=== PATIENT | male | born 1970 | race African-American/Black ===

== ENCOUNTER 2016-11-23 03:59 | Inpatient (IN) | payer MEDICAID, OTHER ==
[2016-11-23] VITALS: BP 108/76
[~2016-11-23] VITALS: Ht 165.1 cm; Wt 153.8 kg
[2016-11-23] MEDS: IPRATROPIUM/ALBUTEROL 0.5-3(2.5)MG/3ML NEB INH SCH ×2 (01:08→12:00)
[2016-11-23] MEDS ORDERED: ONDANSETRON HCL 4MG/2ML VIAL IV STA (04:13)
[2016-11-23] MEDS ORDERED: NITROGLYCERIN OINT 1GM/INCH UDPKT TD STA (04:13)
[2016-11-23] MEDS ORDERED: MORPHINE SULFATE 4 MG/ML CPJ (NOT FOR IM USE) IV STA (04:13)
[2016-11-23] MEDS ORDERED: ENALAPRIL 2.5MG/2ML VIAL 2ML IV STA (04:13)
[2016-11-23] MEDS ORDERED: FUROSEMIDE 40MG/4ML VIAL IV STA (04:13)
[2016-11-23 04:29] LABS: HEMATOCRIT. 39.8 % (42.0-52.0); HEMOGLOBIN. 13.1 g/dL (14.0-18.0); MEAN CORPUSCULAR HEMOGLOBIN 27.3 pg (28.0-32.0); MEAN CORPUSCULAR VOLUME 83.1 fL (80.0-94.0); MEAN PLATELET VOLUME 8.4 fl (7.4-10.4); PLATELET 202 x1000/uL (130-400); RED BLOOD CELL COUNT 4.79 mill/uL (4.7-6.1)
[2016-11-23 04:36] LABS: INR 1.2; PARTIAL THROMBOPLASTIN TIME 28.9 sec (24.0-34.0); PROTHROMBIN TIME 12.1 sec
[2016-11-23 04:44] LABS: CARBON DIOXIDE 25 mEq/L (21-32); CHLORIDE 98 mEq/L (98-107); TROPONIN I < 0.02 ng/mL (0.00-0.04)
[2016-11-23 06:57] LABS: NUCLEATED RED BLOOD CELLS 2 /100 WBC; PLATELET ESTIMATE NORMAL
[2016-11-23 08:00] VITALS: BP_SYST 104; BP_SYST 127; BP_DIAS 72; BP_DIAS 90
[2016-11-23 08:30] VITALS: BP 127/90
[2016-11-23] MEDS ORDERED: DIPHENHYDRAMINE 50MG/ML VIAL IV PRN (10:30)
[2016-11-23] MEDS ORDERED: MAGNESIUM/ALUMINUM HYDROXIDE/SIMETHICONE 30ML UDC PO PRN (10:30)
[2016-11-23] MEDS ORDERED: DOCUSATE SODIUM 100MG CAPSULE PO PRN (10:30)
[2016-11-23] MEDS ORDERED: DEXTROSE 50% WATER 50ML SYRINGE IV PRN (10:30)
[2016-11-23] MEDS ORDERED: ACETAMINOPHEN 325MG TABLET PO PRN (10:30)
[2016-11-23] MEDS ORDERED: CLONIDINE 0.1MG TABLET PO PRN (10:30)
[2016-11-23] MEDS ORDERED: HYDROCODONE/ACETAMINOPHEN 5/325MG TABLET PO PRN (10:30)
[2016-11-23] MEDS ORDERED: NA PHOS,M-B/NA PHOS,DI-BA ENEMA 118ML PR PRN (10:30)
[2016-11-23] MEDS ORDERED: IPRATROPIUM/ALBUTEROL 0.5-3(2.5)MG/3ML NEB INH PRN (10:30)
[2016-11-23] MEDS ORDERED: SERT-112 PO (10:48)
[2016-11-23] MEDS ORDERED: LURA40TA PO (10:48)
[2016-11-23] MEDS ORDERED: ALBU18HF2 IH (10:48)
[2016-11-23] MEDS ORDERED: FURO40TA5 PO (10:48)
[2016-11-23] MEDS ORDERED: HYDR10SY11 PO (10:48)
[2016-11-23] MEDS ORDERED: POTA10TA15 PO (10:48)
[2016-11-23] MEDS ORDERED: LOSA100T14 PO (10:48)
[2016-11-23] MEDS ORDERED: CARV6.2548 PO (10:48)
[2016-11-23] MEDS ORDERED: METF10002 PO (10:48)
[2016-11-23] MEDS ORDERED: GABA-290 PO (10:48)
[2016-11-23] MEDS ORDERED: ATOR20TA65 PO (10:48)
[2016-11-23] MEDS ORDERED: ZITHROMAX XX SCH (11:00)
[2016-11-23] MEDS: LISINOPRIL 10MG TABLET PO SCH (12:01)
[2016-11-23] MEDS: ENOXAPARIN 40MG/0.4ML SYR SUBCUT SCH ×2 (12:02→20:30)
[2016-11-23] MEDS: AMLODIPINE 10MG TABLET PO SCH (12:02)
[2016-11-23] MEDS: FUROSEMIDE 40MG/4ML VIAL IV SCH ×2 (12:02→18:00)
[2016-11-23] MEDS: METHYLPREDNISOLONE SOD SUCC 40 MG/ML VIAL IV SCH ×2 (12:02→18:00)
[2016-11-23] MEDS: INSULIN LISPRO 100 UNITS/ML SUBCUT SCH ×3 (12:05→20:29)
[2016-11-23] MEDS: BLOOD SUGAR DIAGNOSTIC STRIP TEST SCH ×3 (12:06→20:04)
[2016-11-23] MEDS: HYDROCODONE/ACETAMINOPHEN 10/325MG TABLET PO PRN ×2 (12:06→18:01)
[2016-11-23] MEDS ORDERED: AZITHROMYCIN 500 MG in DEXT 5% WATER 250 ML IV SCH (12:30)
[2016-11-23 16:10] VITALS: BP 129/84
[2016-11-23 17:21] LABS: CREATINE KINASE 561 IU/L (39-308); TROPONIN I < 0.02 ng/mL (0.00-0.04)
[2016-11-23 20:00] VITALS: BP 118/83
[2016-11-23] MEDS: INSULIN DETEMIR UD 100 UNITS/ML SYR SUBCUT SCH (21:45)
[2016-11-24] VITALS: BP 108/76
[2016-11-24] MEDS: IPRATROPIUM/ALBUTEROL 0.5-3(2.5)MG/3ML NEB INH SCH ×4 (01:08→20:31)
[2016-11-24 01:45] LABS: TROPONIN I < 0.02 ng/mL (0.00-0.04)
[2016-11-24] MEDS: METHYLPREDNISOLONE SOD SUCC 40 MG/ML VIAL IV SCH ×3 (03:00→18:02)
[2016-11-24 04:00] VITALS: BP 113/88
[2016-11-24 06:31] LABS: HEMATOCRIT. 40.5 % (42.0-52.0); HEMOGLOBIN. 13.1 g/dL (14.0-18.0); MEAN CORPUSCULAR HEMOGLOBIN 27.4 pg (28.0-32.0); MEAN CORPUSCULAR VOLUME 84.5 fL (80.0-94.0); MEAN PLATELET VOLUME 9.2 fl (7.4-10.4); PLATELET 208 x1000/uL (130-400); RED BLOOD CELL COUNT 4.79 mill/uL (4.7-6.1); RED CELL DISTRIBUTION WIDTH 14.9 % (11.6-14.6)
[2016-11-24 06:47] LABS: CARBON DIOXIDE 27 mEq/L (21-32); CHLORIDE 97 mEq/L (98-107); HDL CHOLESTEROL 40 mg/dL (40-59); T4 FREE 0.89 ng/dL (0.76-1.46)
[2016-11-24 06:55] LABS: LDL CHOLESTEROL 40 mg/dL (5-100)
[2016-11-24] MEDS: FUROSEMIDE 40MG/4ML VIAL IV SCH (06:59)
[2016-11-24] MEDS: BLOOD SUGAR DIAGNOSTIC STRIP TEST SCH ×4 (07:04→21:45)
[2016-11-24] MEDS: INSULIN LISPRO 100 UNITS/ML SUBCUT SCH ×7 (07:04→21:44)
[2016-11-24 07:12] LABS: CLARITY URINE CLOUDY (CLEAR); COLOR URINE DARK YELLOW (YELLOW); GLUCOSE URINE 3+ (NEGATIVE); KETONES URINE NEGATIVE (NEGATIVE); LEUKOCYTE ESTERASE URINE TRACE (NEGATIVE); NITRITE URINE NEGATIVE (NEGATIVE); OCCULT BLOOD URINE NEGATIVE (NEGATIVE); PROTEIN URINE 1+ (NEGATIVE); SPECIFIC GRAVITY URINE 1.019 (1.005-1.030)
[2016-11-24 07:25] LABS: CREATINE KINASE 1242 IU/L (39-308)
[2016-11-24 07:26] LABS: *AMPHETAMINES SCREEN URINE NEGATIVE (NEGATIVE); *BARBITURATES SCREEN URINE NEGATIVE (NEGATIVE); *BENZODIAZEPINES SCREEN URINE NEGATIVE (NEGATIVE); *COCAINE SCREEN URINE NEGATIVE (NEGATIVE); CANNABINOID URINE SCREEN NEGATIVE (NEGATIVE); METHADONE URINE SCREEN NEGATIVE (NEGATIVE); OPIATES URINE SCREEN PRESUMTIVE POSITIVE (NEGATIVE); PHENCYCLIDINE URINE SCREEN NEGATIVE (NEGATIVE)
[2016-11-24 08:00] VITALS: BP 122/96
[2016-11-24] MEDS: AMLODIPINE 10MG TABLET PO SCH (08:25)
[2016-11-24] MEDS: LISINOPRIL 10MG TABLET PO SCH (08:25)
[2016-11-24] MEDS: ENOXAPARIN 40MG/0.4ML SYR SUBCUT SCH ×2 (08:25→21:46)
[2016-11-24 08:32] LABS: BG BASE EXCESS -1.1 mmol/L (-2.0-2.0); BG CARBOXYHEMOGLOBIN 1.4 % (0.5-1.5); BG DEOXYHEMOGLOBIN 9.2 % (0.0-5.0); BG FRACTION INSPIRED OXYGEN 21; BG HCO3 ACT 24.8 mmol/L (22.0-26.0); BG METHEMOGLOBIN 0.3 % (0.0-1.5); BG OXYGEN SATURATION 90.6 % (92.0-98.5); BG OXYHEMOGLOBIN 89.1 % (94.0-97.0); BG PCO2 46.2 mmHg (35.0-45.0); BG PH 7.348 (7.350-7.450); BG PO2 62.7 mmHg (75.0-100.0); BG SAMPLE SITE RIGHT RADIAL; BG TOTAL HEMOGLOBIN 13.8 g/dL (12.0-18.0); BG VENT MODE ROOM AIR
[2016-11-24 10:31] LABS: PLATELET ESTIMATE NORMAL
[2016-11-24 12:00] VITALS: BP 114/81
[2016-11-24] MEDS: CEFTRIAXONE 1 G PREMIX 50 ML IV SCH (12:18)
[2016-11-24] MEDS ORDERED: AZITHROMYCIN 500 MG in DEXT 5% WATER 250 ML IV SCH (12:30)
[2016-11-24 16:00] VITALS: BP 103/82
[2016-11-24 20:00] VITALS: BP 125/81
[2016-11-24] MEDS: INSULIN DETEMIR UD 100 UNITS/ML SYR SUBCUT SCH (21:45)
[2016-11-25] VITALS: BP 148/107
[2016-11-25] MEDS: IPRATROPIUM/ALBUTEROL 0.5-3(2.5)MG/3ML NEB INH SCH ×3 (02:24→13:53)
[2016-11-25] MEDS: METHYLPREDNISOLONE SOD SUCC 40 MG/ML VIAL IV SCH ×3 (02:27→18:54)
[2016-11-25] MEDS: HYDROCODONE/ACETAMINOPHEN 10/325MG TABLET PO PRN (02:34)
[2016-11-25 04:00] VITALS: BP 123/67
[2016-11-25 06:29] LABS: CARBON DIOXIDE 26 mEq/L (21-32); CHLORIDE 96 mEq/L (98-107)
[2016-11-25] MEDS: BLOOD SUGAR DIAGNOSTIC STRIP TEST SCH ×4 (06:42→21:52)
[2016-11-25 07:23] LABS: HEMATOCRIT. 37.6 % (42.0-52.0); HEMOGLOBIN. 12.1 g/dL (14.0-18.0); MEAN CORPUSCULAR HEMOGLOBIN 27.1 pg (28.0-32.0); MEAN CORPUSCULAR VOLUME 84.6 fL (80.0-94.0); MEAN PLATELET VOLUME 9.6 fl (7.4-10.4); PLATELET 235 x1000/uL (130-400); RED BLOOD CELL COUNT 4.45 mill/uL (4.7-6.1)
[2016-11-25 08:00] VITALS: BP 125/90
[2016-11-25] MEDS: INSULIN LISPRO 100 UNITS/ML SUBCUT SCH ×7 (08:05→21:54)
[2016-11-25] MEDS: LISINOPRIL 10MG TABLET PO SCH (08:58)
[2016-11-25] MEDS: AMLODIPINE 10MG TABLET PO SCH (08:58)
[2016-11-25] MEDS ORDERED: FUROSEMIDE 40MG TABLET PO SCH (09:00)
[2016-11-25] MEDS: ENOXAPARIN 40MG/0.4ML SYR SUBCUT SCH ×2 (09:02→21:52)
[2016-11-25] MEDS: CEFTRIAXONE 1 G PREMIX 50 ML IV SCH (11:38)
[2016-11-25] MEDS: INSULIN DETEMIR UD 100 UNITS/ML SYR SUBCUT SCH ×2 (11:44→21:54)
[2016-11-25 12:00] VITALS: BP 139/91
[2016-11-25 14:20] LABS: PLATELET ESTIMATE NORMAL
[2016-11-25 16:00] VITALS: BP 132/94
[2016-11-25 20:44] VITALS: BP 126/87
[2016-11-26] MEDS: IPRATROPIUM/ALBUTEROL 0.5-3(2.5)MG/3ML NEB INH SCH ×2 (02:20→09:32)
[2016-11-26] MEDS: METHYLPREDNISOLONE SOD SUCC 40 MG/ML VIAL IV SCH ×2 (03:01→10:14)
[2016-11-26 04:00] VITALS: BP 137/97
[2016-11-26 06:05] LABS: HEMATOCRIT. 38.4 % (42.0-52.0); HEMOGLOBIN. 12.4 g/dL (14.0-18.0); MEAN CORPUSCULAR VOLUME 83.6 fL (80.0-94.0); MEAN PLATELET VOLUME 8.8 fl (7.4-10.4); PLATELET 292 x1000/uL (130-400)
[2016-11-26 06:22] LABS: CARBON DIOXIDE 27 mEq/L (21-32); CHLORIDE 99 mEq/L (98-107)
[2016-11-26] MEDS: BLOOD SUGAR DIAGNOSTIC STRIP TEST SCH ×2 (06:43→13:11)
[2016-11-26] MEDS: INSULIN LISPRO 100 UNITS/ML SUBCUT SCH ×4 (07:53→13:16)
[2016-11-26 08:00] VITALS: BP 156/97
[2016-11-26] MEDS: LISINOPRIL 10MG TABLET PO SCH (08:21)
[2016-11-26] MEDS: AMLODIPINE 10MG TABLET PO SCH (08:22)
[2016-11-26] MEDS: ENOXAPARIN 40MG/0.4ML SYR SUBCUT SCH (08:24)
[2016-11-26] MEDS: INSULIN DETEMIR UD 100 UNITS/ML SYR SUBCUT SCH (10:19)
[2016-11-26 10:27] LABS: NUCLEATED RED BLOOD CELLS 3 /100 WBC; PLATELET ESTIMATE NORMAL
[2016-11-26 12:00] VITALS: BP 146/97
[2016-11-26] MEDS: CEFTRIAXONE 1 G PREMIX 50 ML IV SCH (12:01)
[2016-11-26] MEDS ORDERED: HYDROCODONE/ACETAMINOPHEN 10/325MG TABLET PO PRN (14:30)
[2016-11-26 16:00] VITALS: BP 119/91
[2016-11-26 16:59] VITALS: BP 119/96
== END 2016-11-26 18:45 | disposition home or self-care (01) | DRG 194 ==
LOC: ER 04:00 → 6WST 08:54
PROVIDERS: ADMIT Internal Medicine; ATTEND Internal Medicine
PROC: 5A09357 Assistance with Respiratory Ventilation, Less than 24 Consecutive Hours, Continuous Positive Airway Pressure (ICD-10-PCS; principal; 2016-11-24)
DX: I11.0 Hypertensive heart disease with heart failure (principal); E11.42 Type 2 diabetes mellitus with diabetic polyneuropathy; I50.33 Acute on chronic diastolic (congestive) heart failure; J44.1 Chronic obstructive pulmonary disease with (acute) exacerbation; E66.01 Morbid (severe) obesity due to excess calories; E78.5 Hyperlipidemia, unspecified; F17.210 Nicotine dependence, cigarettes, uncomplicated; F32.9 Major depressive disorder, single episode, unspecified; F41.9 Anxiety disorder, unspecified; G47.33 Obstructive sleep apnea (adult) (pediatric); I25.10 Atherosclerotic heart disease of native coronary artery without angina pectoris; J98.11 Atelectasis; R35.1 Nocturia; Z60.2 Problems related to living alone; M43.17 Spondylolisthesis, lumbosacral region; Z68.43 Body mass index [BMI] 50.0-59.9, adult; I69.354 Hemiplegia and hemiparesis following cerebral infarction affecting left non-dominant side; Z79.84 Long term (current) use of oral hypoglycemic drugs; Z82.49 Family history of ischemic heart disease and other diseases of the circulatory system
CPT/HCPCS: 36415; 36600; 71010; 74176; 76705; 80048; 80053; 80061; 80305; 81001; 82375; 82550; 82805; 82962; 83036; 83735; 83880; 84439; 84443; 84481; 84484; 85025; 85610; 85730; 87040; 87070; 87077; 87186; 93005; 93306; 93970; 94640; 94660; 94664; 96374; 96375; 99285; C1893; J0456; J0696; J1650; J1815; J1940; J2270; J2405; J2920; J3490; J7050; J7060; J7620